=== PATIENT | male | born 1995 | race Two or more races ===

== ENCOUNTER 2025-01-30 15:38 | Outpatient (AMB) | payer MEDICAID, SELFPAY ==
--- NOTE | 2025-01-30 15:56 | PD.RESCLINIC ---
Vital Signs 01/30/25 15:57 Height 1.7 m Height Method Stated Weight 78.982 kg Weight Measurement Method Standing Scale BMI 27.3 BP 114/71 Blood Pressure Source Automatic Cuff Blood Pressure Location Right Upper Arm Position Sitting Respiration 18 Pulse 83 Pulse Source Monitor Temp 98.2 F Temp Source Temporal Artery Scan Pulse Oximetry (%) 92 L Oxygen Delivery Method Room Air Allergies/Meds Allergies & Medications Allergies aspirin Allergy (Verified 02/01/25 09:58) citric acid (From [facility]) Allergy (Verified 02/01/25 09:58) diclofenac Allergy (Verified 02/01/25 09:58) ibuprofen Allergy (Verified 02/01/25 09:58) ketorolac (From Toradol) Allergy (Verified 02/01/25 09:58) naproxen Allergy (Verified 02/01/25 09:58) sodium bicarbonate (From [facility]) Allergy (Verified 02/01/25 09:58) Medication Reconciliation fluticasone propionate 50 mcg/actuation nasal spray,suspension (Flonase Allergy Relief) 2 spray intranasal QDAY #16 grams 05/17/24 [Rx] methylprednisolone 4 mg tablets in a dose pack (Medrol ([facility])) See Rx Instructions PO PER PKG DIR asthma #21 tabs 05/17/24 [Rx] albuterol sulfate 90 mcg/actuation aerosol inhaler 2 puff inhalation Q6H PRN shortness of breath or wheezing 1 month #8.5 grams 01/30/25 [Rx Confirmed 02/01/25] albuterol sulfate 90 mcg/actuation breath activated powder inhaler 1 inh inhalation QID PRN Asthma 1 month #1 ea 01/30/25 [Rx Confirmed 02/01/25] cetirizine 10 mg tablet 10 mg PO QDAY allergy symptoms #30 tabs 01/30/25 [Rx Confirmed 02/01/25] fluticasone 500 mcg-salmeterol 50 mcg/dose blistr powdr for inhalation (Advair Diskus) 1 inh inhalation Q12H #60 ea 01/30/25 [Rx Confirmed 02/01/25] fluticasone propionate 50 mcg/actuation nasal spray,suspension (Flonase Allergy Relief) 1 spray intranasal QDAY 1 month #16 grams 01/30/25 [Rx Confirmed 02/01/25] montelukast 10 mg tablet 10 mg PO QDAY #30 tabs 01/30/25 [Rx Confirmed 02/01/25] MA Intake Visit Data Collection New Patient or Established: Established Patient (seen at [facility] within 3 years) Seen by Clinical Staff ONLY (RN/SHABBIR): No Pain Present Currently: No Pain scale:: 0 Pain Scale Used: New-Diaz/Numerical Senior Statistician Required: No PCP or OBGYN visit in last 3 months: Yes Hx Now: No Do You Feel Safe at Home: Yes Authorities Contacted: N/A Smoking Status Smoking Status: Never smoker Immunization / Flu Flu Vaccine in the Last 12 Months: No Flu Vaccine Exclusion Criteria: No Exclusion Criteria Past Medical History Past Medical History CARDIAC: Negative Congestive Heart Failure RESPIRATORY: Positive Asthma; Negative Chronic Obstructive Pulmonary Disease (COPD) GENITOURINARY: Negative Renal Disease ENDOCRINE: Negative Diabetes Mellitus Type 1 or Diabetes Mellitus Type 2 Family History FAMILY HISTORY: Negative Family Respiratory Disorders Social History SMOKING STATUS: Smoking status: Never smoker ALCOHOL: Alcohol Intake: Current ALCOHOL FREQUENCY: Alcohol Intake Frequency: holidays/special occasions only HOUSING: Housing: Apartment LIVES WITH: Lives With: Family Patient Portal Stefanieaminata Social History Living Situation History Housing: Apartment Housing Other:: pt lives with both parents Tobacco History Smoking Status: Never smoker Alcohol History Alcohol Intake: Current Alcohol Intake Frequency: holidays/special occasions only Domestic Abuse History Do You Feel Safe at Home: Yes Review of Systems Report any current symptoms Only answer those that you have currently: Past Medical History Past Medical History Have you ever been diagnosed with any of the following: Cardiology Problems Congestive Heart Failure: No Respiratory Problems Chronic Obstructive Pulmonary Disease (COPD): No Asthma: Yes Genital/Urinary Problems Renal Disease: No Endocrine Problems Diabetes Mellitus Type 1: No Diabetes Mellitus Type 2: No History of Present Illness HPI Narrative Pt reports he is doing well, however worsening symptoms of his asthma. He says that he gets some buring sensation and trouble breathing at times and it is usually when the weather changes now. He has been taking Zyrtec and Singular as needed. He has been taking Advair diskus 4 puffs a day. He rarely uses his Albuterol inhaler. He still works in the [employer]. Has not had PFTs or seen a lung doctor. He does not have an Epi pen at home. He says he was last hospitalized for an asthma exacerbation in 2021. He does not wake up in the middle of the night struggling to breathe either. He has not seen an phlebotomy lab assistant either. No other complaints at this time Review of Systems Review of Systems Narrative Review of Systems: 12 point ROS reviewed and is otherwise negative unless stated directly in the HPI Objective/Exam Narrative Physical exam: General: AAOx3, NAD, Kyrgyz speaking male HEENT: Moist mucous membranes, conjunctiva clear, EOMI, PERRLA, Cardiovascular: S1, S2, radial pulses +2 bilat, RRR Pulmonary: Wheezing throughout lung cal[place], no cough GI: No tenderness to light or deep palpitation, no guarding, rigidity, rebound tenderness or distension Extremities: No presence of trace or pitting edema in lower extremities bilaterally, dorsalis pedis pulses +2 bilaterally Neuro: AAOx3, no focal motor or sensory deficits in the UE or LE bilat Psych: Good judgement, thought and behavior Assessment & Plan Diagnosis / Problem List (1) Asthma: Status: Acute Qualifiers: Asthma complication type: unspecified Asthma persistence: unspecified Asthma severity: unspecified severity Qualified Code(s): J45.909 - Unspecified asthma, uncomplicated Plan: Continue Advair Diskus 1 puff BID Zyretc and Singular Scheduled Albuterol as needed PFTs Referral Pulmonology Referral Chest Xray Flonase as needed (2) Acute respiratory distress: Status: Acute Assessment & Plan: Hx of exacerbation in the past Works in [employer], high risk for Cocci infection Plan: As Above Cocci Serology (3) Periodic health assessment, general screening, adult: Status: Acute Plan: TSH, Lipid panel, A1c, CBC, CMP (4) Asthma with acute exacerbation: Status: Acute Assessment & Plan: Hx of it Plan: As above Use Flonase as needed Orders: Orders Cocci Serology, Unk History 01/30/25 R06.03 - Acute respiratory distress Ambulatory Hemoglobin A1C 01/30/25 Z00.00 - Encounter for general adult medical examination without abnormal findings Thyroid Stimulating Hormone 01/30/25 Z00.00 - Encounter for general adult medical examination without abnormal findings CBC 01/30/25 Z00.00 - Encounter for general adult medical examination without abnormal findings Lipid Panel 01/30/25 Z00.00 - Encounter for general adult medical examination without abnormal findings XR chest 2V 01/30/25 Referrals Allergy and Immunology J45.909 - Unspecified asthma, uncomplicated Pulmonology J45.901 - Unspecified asthma with (acute) exacerbation Pulmonary Function Study Referral J45.909 - Unspecified asthma, uncomplicated Additional Assessment Attending note: I, Sanchez Martinez MD, attest that I was physically present for the zapien portions of the service completed via telehealth, and I reviewed and discussed the case with the resident and agree with the resident's plans of care as documented above. Sanchez Martinez MD Physician Billing Established Patient Established Patient: E/M Level 3-CPT 49861 Office Procedures [facility] Level of Care Nursing/Assessment Patient Status: Established Patient Nursing Assessment/Reassessment: Medication Reconciliation, Update PMH in EMR and Vital Signs Coordination of Care: Complex Care and Chronic Disease 1-5, Consent,records obtained, informed consent, Education Simp Pt/Fam and Staff clarify orders Established Patient Charge Established Patient Point Assignment: 85 Established Patient Point Charge: EP Level 3 (80-115)
[2025-01-30 15:57] VITALS: BP 114/71; PULSE 83; RESP 18; TEMP 36.8; O2SAT 92; BMI 27.3
== END 2025-01-30 16:41 | disposition home or self-care (01) ==
LOC: HODAHC 15:38
PROVIDERS: Supervising Provider Student in an Organized Health Care Education/Training Program; Visit Provider Student in an Organized Health Care Education/Training Program
DX: J45.909 Unspecified asthma, uncomplicated (principal)
CPT/HCPCS: 99213; G0463

== ENCOUNTER → 2025-02-03 | Outpatient (CLI) | payer MEDICAID, SELFPAY ==
--- NOTE | 2025-02-03 13:31 | XR_ITS ---
Examination: PA lateral chest 2 views TECHNIQUE: Upright PA lateral chest 2 views Date and time: February 03, 2025 1335 hours Comparison 04/12/2022 INDICATIONS: Shortness breath beginning 2 weeks ago. FINDINGS: Parenchymal disease in the lingular segment Normal heart size Right lung clear IMPRESSION: Parenchymal disease in the lingular segment left upper lobe, differential would include scarring, pneumonia, clinical correlation advised
== END | disposition home or self-care (01) ==
LOC: CDIM 13:20
DX: R91.8 Other nonspecific abnormal finding of lung field (principal)
CPT/HCPCS: 71046

== ENCOUNTER 2025-02-27 15:45 | Outpatient (AMB) | payer MEDICAID, SELFPAY ==
[2025-02-27 15:09] VITALS: BP 118/78; PULSE 83; RESP 18; TEMP 36.6; O2SAT 93; BMI 27.3
--- NOTE | 2025-03-01 15:06 | PD.RESCLINIC ---
Vital Signs 02/27/25 15:09 Height 1.7 m Height Method Stated Weight 78.982 kg Weight Measurement Method Standing Scale BMI 27.3 BP 118/78 Blood Pressure Source Automatic Cuff Blood Pressure Location Right Upper Arm Position Sitting Respiration 18 Pulse 83 Pulse Source Monitor Temp 97.8 F Temp Source Temporal Artery Scan Pulse Oximetry (%) 93 L Oxygen Delivery Method Room Air Allergies/Meds Allergies & Medications Allergies aspirin Allergy (Verified 03/01/25 15:11) citric acid (From [facility]) Allergy (Verified 03/01/25 15:11) diclofenac Allergy (Verified 03/01/25 15:11) ibuprofen Allergy (Verified 03/01/25 15:11) ketorolac (From Toradol) Allergy (Verified 03/01/25 15:11) naproxen Allergy (Verified 03/01/25 15:11) sodium bicarbonate (From [facility]) Allergy (Verified 03/01/25 15:11) Medication Reconciliation fluticasone propionate 50 mcg/actuation nasal spray,suspension (Flonase Allergy Relief) 2 spray intranasal QDAY #16 grams 05/17/24 [Rx Confirmed 03/01/25] methylprednisolone 4 mg tablets in a dose pack (Medrol ([place])) See Rx Instructions PO PER PKG DIR asthma #21 tabs 05/17/24 [Rx Confirmed 03/01/25] albuterol sulfate 90 mcg/actuation aerosol inhaler 2 puff inhalation Q6H PRN shortness of breath or wheezing 1 month #8.5 grams 01/30/25 [Rx Confirmed 03/01/25] albuterol sulfate 90 mcg/actuation breath activated powder inhaler 1 inh inhalation QID PRN Asthma 1 month #1 ea 01/30/25 [Rx Confirmed 03/01/25] cetirizine 10 mg tablet 10 mg PO QDAY allergy symptoms #30 tabs 01/30/25 [Rx Confirmed 03/01/25] fluticasone 500 mcg-salmeterol 50 mcg/dose blistr powdr for inhalation (Advair Diskus) 1 inh inhalation Q12H #60 ea 01/30/25 [Rx Confirmed 03/01/25] fluticasone propionate 50 mcg/actuation nasal spray,suspension (Flonase Allergy Relief) 1 spray intranasal QDAY 1 month #16 grams 01/30/25 [Rx Confirmed 03/01/25] montelukast 10 mg tablet 10 mg PO QDAY #30 tabs 01/30/25 [Rx Confirmed 03/01/25] MA Intake Visit Data Collection New Patient or Established: Established Patient (seen at [facility] within 3 years) Seen by Clinical Staff ONLY (RN/SHABBIR): No Pain Present Currently: No Pain scale:: 0 Pain Scale Used: New-Diaz/Numerical Manager Enterprise Content Management Required: No PCP or OBGYN visit in last 3 months: No Do You Feel Safe at Home: Yes Authorities Contacted: N/A Smoking Status Smoking Status: Never smoker Immunization / Flu Flu Vaccine in the Last 12 Months: No Flu Vaccine Exclusion Criteria: No Exclusion Criteria Past Medical History Past Medical History CARDIAC: Negative Congestive Heart Failure RESPIRATORY: Positive Asthma; Negative Chronic Obstructive Pulmonary Disease (COPD) GENITOURINARY: Negative Renal Disease ENDOCRINE: Negative Diabetes Mellitus Type 1 or Diabetes Mellitus Type 2 Family History FAMILY HISTORY: Negative Family Respiratory Disorders Social History SMOKING STATUS: Smoking status: Never smoker ALCOHOL: Alcohol Intake: Current ALCOHOL FREQUENCY: Alcohol Intake Frequency: holidays/special occasions only HOUSING: Housing: Apartment LIVES WITH: Lives With: Family Patient Cristian Stefanieaminata Social History Living Situation History Housing: Apartment Housing Other:: pt lives with both parents Tobacco History Smoking Status: Never smoker Alcohol History Alcohol Intake: Current Alcohol Intake Frequency: holidays/special occasions only Domestic Abuse History Do You Feel Safe at Home: Yes Review of Systems Report any current symptoms Only answer those that you have currently: Past Medical History Past Medical History Have you ever been diagnosed with any of the following: Cardiology Problems Congestive Heart Failure: No Respiratory Problems Chronic Obstructive Pulmonary Disease (COPD): No Asthma: Yes Genital/Urinary Problems Renal Disease: No Endocrine Problems Diabetes Mellitus Type 1: No Diabetes Mellitus Type 2: No History of Present Illness HPI Narrative Patient examined at bedside today. Patient reports he is doing well. Patient says he has only been using his Advair once a day and has not been using his rescue albuterol. He he says he is looking to get a different job but not work in the [place]. He says that his shortness of breath is improved. No other complaints at this time. Review of Systems Review of Systems Narrative Review of Systems: 12 point ROS reviewed and is otherwise negative unless stated directly in the HPI Objective/Exam Narrative Physical exam: General: AAOx3, NAD, South Korean speaking male HEENT: Moist mucous membranes, conjunctiva clear, EOMI, PERRLA, Cardiovascular: S1, S2, radial pulses +2 bilat, RRR Pulmonary: CTAB, no cough GI: No tenderness to light or deep palpitation, no guarding, rigidity, rebound tenderness or distension Extremities: No presence of trace or pitting edema in lower extremities bilaterally, dorsalis pedis pulses +2 bilaterally Neuro: AAOx3, no focal motor or sensory deficits in the UE or LE bilat Psych: Good judgement, thought and behavior Assessment & Plan Diagnosis / Problem List (1) Asthma: Status: Acute Qualifiers: Asthma severity: unspecified severity Asthma persistence: unspecified Asthma complication type: unspecified Qualified Code(s): J45.909 - Unspecified asthma, uncomplicated Assessment & Plan: Chest x-ray shows some residual scarring Cocci negative Plan: Continue Advair Diskus 1 puff BID Zyretc and Singular Scheduled Albuterol as needed PFTs Referral Pulmonology Referral Flonase as needed (2) Hyperlipidemia: Status: Acute Qualifiers: Hyperlipidemia type: unspecified Qualified Code(s): E78.5 - Hyperlipidemia, unspecified Assessment & Plan: Elevated LDL in low 100s Plan: Primary lifestyle management Office Procedures [facility] Level of Care Nursing/Assessment Patient Status: Established Patient Nursing Assessment/Reassessment: Medication Reconciliation, Update PMH in EMR and Vital Signs Coordination of Care: Complex Care and Chronic Disease 1-5, Consent,records obtained, informed consent, Education Simp Pt/Fam and Staff clarify orders Established Patient Charge Established Patient Point Assignment: 85 Established Patient Point Charge: Level 3 (80-115)
== END 2025-02-27 17:05 | disposition home or self-care (01) ==
LOC: HODAHC 15:45
DX: J45.909 Unspecified asthma, uncomplicated (principal); E78.5 Hyperlipidemia, unspecified
CPT/HCPCS: 99213; G0463

== ENCOUNTER 2025-06-07 13:54 | Outpatient (AMB) | payer MEDICAID, SELFPAY ==
[2025-06-07 14:04] VITALS: BP 113/70; PULSE 77; RESP 16; TEMP 36.8; O2SAT 94; BMI 29.5
--- NOTE | 2025-06-07 14:04 | ACNOTE_ITS ---
Vital Signs 06/07/25 14:04 Height 1.7 m Height Method Stated Weight 85.332 kg Weight Measurement Method Standing Scale BMI 29.5 BP 113/70 Blood Pressure Source Automatic Cuff Blood Pressure Location Right Upper Arm Position Sitting Respiration 16 Pulse 77 Pulse Source Monitor Temp 98.3 F Temp Source Temporal Artery Scan Pulse Oximetry (%) 94 L Oxygen Delivery Method Room Air Allergies/Meds Allergies & Medications Allergies aspirin Allergy (Verified 06/07/25 14:05) citric acid (From [facility]) Allergy (Verified 06/07/25 14:05) diclofenac Allergy (Verified 06/07/25 14:05) ibuprofen Allergy (Verified 06/07/25 14:05) ketorolac (From Toradol) Allergy (Verified 06/07/25 14:05) naproxen Allergy (Verified 06/07/25 14:05) sodium bicarbonate (From [facility]) Allergy (Verified 06/07/25 14:05) Medication Reconciliation fluticasone propionate 50 mcg/actuation nasal spray,suspension (Flonase Allergy Relief) 2 spray intranasal QDAY #16 grams 05/17/24 [Rx Confirmed 06/07/25] methylprednisolone 4 mg tablets in a dose pack (Medrol ([place])) See Rx Instructions PO PER PKG DIR asthma #21 tabs 05/17/24 [Rx Confirmed 06/07/25] albuterol sulfate 90 mcg/actuation breath activated powder inhaler 1 inh inhalation QID PRN Asthma 1 month #1 ea 01/30/25 [Rx Confirmed 06/07/25] fluticasone propionate 50 mcg/actuation nasal spray,suspension (Flonase Allergy Relief) 1 spray intranasal QDAY 1 month #16 grams 01/30/25 [Rx Confirmed 06/07/25] albuterol sulfate 90 mcg/actuation aerosol inhaler 2 puff inhalation Q6H PRN shortness of breath or wheezing 1 month #8.5 grams 06/07/25 [Rx] cetirizine 10 mg tablet 10 mg PO QDAY allergy symptoms #30 tabs 06/07/25 [Rx] fluticasone 500 mcg-salmeterol 50 mcg/dose blistr powdr for inhalation (Advair Diskus) 1 inh inhalation Q12H #60 ea 06/07/25 [Rx] montelukast 10 mg tablet 10 mg PO QDAY #30 tabs 06/07/25 [Rx] MA Intake Visit Data Collection New Patient or Established: Established Patient (seen at [facility] within 3 years) Seen by Clinical Staff ONLY (RN/SHABBIR): No Pain Present Currently: No Pain scale:: 0 Pain Scale Used: New-Diaz/Numerical Sample Prep Technician Required: Yes PCP or OBGYN visit in last 3 months: Yes Do You Feel Safe at Home: Yes Authorities Contacted: N/A Smoking Status Smoking Status: Never smoker Immunization / Flu Flu Vaccine in the Last 12 Months: No Flu Vaccine Exclusion Criteria: No Exclusion Criteria Past Medical History Past Medical History CARDIAC: Negative Congestive Heart Failure RESPIRATORY: Positive Asthma; Negative Chronic Obstructive Pulmonary Disease (COPD) GENITOURINARY: Negative Renal Disease ENDOCRINE: Negative Diabetes Mellitus Type 1 or Diabetes Mellitus Type 2 Family History FAMILY HISTORY: Negative Family Respiratory Disorders Social History SMOKING STATUS: Smoking status: Never smoker ALCOHOL: Alcohol Intake: Current ALCOHOL FREQUENCY: Alcohol Intake Frequency: holidays/special occasions only HOUSING: Housing: Apartment LIVES WITH: Lives With: Family Patient Portal Questionaires PHQ-9 PHQ-2 Over the last 2 weeks, how often have you been bothered by any of the following problems? 1. Little interest or pleasure in doing things: not at all 2. Feeling down, depressed, or hopeless: not at all Total score: 0 Social History Living Situation History Housing: Apartment Housing Other:: pt lives with both parents Tobacco History Smoking Status: Never smoker Alcohol History Alcohol Intake: Current Alcohol Intake Frequency: holidays/special occasions only Domestic Abuse History Do You Feel Safe at Home: Yes Review of Systems Report any current symptoms Only answer those that you have currently: Past Medical History Past Medical History Have you ever been diagnosed with any of the following: Cardiology Problems Congestive Heart Failure: No Respiratory Problems Chronic Obstructive Pulmonary Disease (COPD): No Asthma: Yes Genital/Urinary Problems Renal Disease: No Endocrine Problems Diabetes Mellitus Type 1: No Diabetes Mellitus Type 2: No History of Present Illness HPI Narrative 01/26/2024: Mr. Callahan is a 28 year old male with PMH of asthma and chronic allergy who presented today to the [facility] for medication refills. 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 He denied any recent sick contact, fever, chills, chest pain, light headedness or nausea or vomiting. 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 He was also counseled to avoid dust and dirt contact at home and other places. He understood the management plan. F/u after 6 months. 01/30/2025: Pt reports he is doing well, however worsening symptoms of his asthma. He says that he gets some buring sensation and trouble breathing at times and it is usually when the weather changes now. He has been taking Zyrtec and Singular as needed. He has been taking Advair diskus 4 puffs a day. He rarely uses his Albuterol inhaler. He still works in the [employer]. Has not had PFTs or seen a lung doctor. He does not have an Epi pen at home. He says he was last hospitalized for an asthma exacerbation in 2021. He does not wake up in the middle of the night struggling to breathe either. He has not seen an director of brand marketing either. No other complaints at this time 03/01/2025: Patient examined at bedside today. Patient reports he is doing well. Patient says he has only been using his Advair once a day and has not been using his rescue albuterol. He he says he is looking to get a different job but not work in the [place]. He says that his shortness of breath is improved. No other complaints at this time. 06/07/2025: Patient here for the follow up. His asthma symptoms being controlled by Zyrtec and Singluar. No more using Advair or albutrol inhaler. He is doing perfectly fine with no SOB. No other symptoms to report. Another follow up in 6 months. Assessment and plan discussed with my attending physician Dr. Angela Barcenas (PGY-1) - Internal medicine resident Review of Systems Review of Systems Narrative Review of Systems: All 12 systems assessed and the patient denies unless otherwise stated in HPI Objective/Exam Narrative Physical exam: General: No acute distress, well nourished, AAO x3 Eye: Normal conjunctiva, no scleral icterus HENT: Normocephalic, atraumatic, hearing intact to conversation at normal v olume, moist oral mucosa Neck: Supple, non-tender, no JVD, no lymphadenopathy Lungs: Non-labored respirations, symmetric chest rise, Clear to auscultate bilaterally, No wheezing, rhonchi, crackles Heart: Peripheral pulses intact bilaterally, Regular Rate and Rhythm. Abdomen: Soft, non-tender, non-distended, no palpable masses Musculoskeletal: Normal range of motion and strength, No cyanosis or edema, No visible joint swelling Skin: Skin is warm, dry, no rashes or lesions. Psychiatric: Cooperative, appropriate mood and affect, Awake and alert, not agitated Neuro: Cranial nerves II-XII grossly intact. Strength 5/5 throughout. Sensations intact to light touch. Assessment & Plan Diagnosis / Problem List (1) Asthma: Status: Acute Qualifiers: Asthma severity: unspecified severity Asthma persistence: unspecified Asthma complication type: unspecified Qualified Code(s): J45.909 - Unspecified asthma, uncomplicated Assessment & Plan: Patient here for the follow up. His asthma symptoms being controlled by Zyrtec and Singluar. No more using Advair or albutrol inhaler. He is doing perfectly fine with no SOB. No other symptoms to report. Another follow up in 6 months. Office Procedures [facility] Level of Care Nursing/Assessment Patient Status: Established Patient Nursing Assessment/Reassessment: Medication Reconciliation, Update PMH in EMR and Vital Signs Coordination of Care: Complex Care and Chronic Disease 1-5, Complex Care/Chronic Disease 5 or more, Consent,records obtained, informed consent, Lab and Imaging orders, Results/Orders obtained and Staff clarify orders Established Patient Charge Established Patient Point Assignment: 125 Established Patient Point Charge: Level 4 (120-155)
== END 2025-06-07 15:11 | disposition home or self-care (01) ==
LOC: HODAHC 13:54
PROVIDERS: Referring Provider Family Medicine; Supervising Provider Internal Medicine
DX: J45.909 Unspecified asthma, uncomplicated (principal)
CPT/HCPCS: 99214; G0463